=== PATIENT | male | born 1965 | race Caucasian/White ===

== ENCOUNTER 2016-06-05 07:04 | Day surgery (SDC) | payer OTHER ==
[2016-06-02 13:14] VITALS: BMI 23.8
[2016-06-05] MEDS ORDERED: PROPOFOL 20 ML ONE ×2 (08:03)
[2016-06-05 09:02] VITALS: TEMP 97.6
[2016-06-05 09:41] VITALS: BP 110/69; PULSE 57
--- NOTE | 2016-06-06 11:54 | PATH ---
Surgical Pathology Report Patient Name: TASH RUTHERFORD [facility]. Rec. #: [id number] /Age/Gender: 1965 (Age: 50) / M Account: [id number] Location: [facility]-ENDOSCOPY Taken: 06/05/2016 Received: 06/05/2016 Reported: 06/06/2016 Physicians: Nii Nichols M.D. Specimen(s) Received POLYP RECTO-SIGMOID Clinical History Diverticulosis Colon polyps, hemorrhoids Final Diagnosis COLON, RECTOSIGMOID, BIOPSY: MULTIPLE PORTIONS OF HYPERPLASTIC POLYP. Comment: Recommend correlation with clinical findings and follow up as clinically indicated. Electronically Signed Chalo Whalen M.D. Gross Description Received in formalin, labeled "polyp rectosigmoid" are 7 jordan, irregular portions of soft tissue ranging from 0.2-0.5 cm. in greatest dimension. The specimens are submitted in toto in one cassette. /06/05/201606/05/2016
== END 2016-06-05 09:41 | disposition home or self-care (01) ==
LOC: JASU-ENDO 07:04
PROVIDERS: ATTEND Internal Medicine Gastroenterology
PROC: 0DBE8ZX Excision of Large Intestine, Via Natural or Artificial Opening Endoscopic, Diagnostic (ICD-10-PCS; 2016-06-05)
PROC: 0DBM8ZX Excision of Descending Colon, Via Natural or Artificial Opening Endoscopic, Diagnostic (ICD-10-PCS; principal; 2016-06-05 08:00)
DX: K57.30 Diverticulosis of large intestine without perforation or abscess without bleeding (principal); D12.7 Benign neoplasm of rectosigmoid junction; D12.4 Benign neoplasm of descending colon; K64.8 Other hemorrhoids
CPT/HCPCS: 88305-TC